=== PATIENT | male | born 1950 | race Caucasian/White ===

== ENCOUNTER → 2016-07-30 08:07 | Outpatient (CLI) | payer MEDICARE ==
[2016-04-09 13:13] VITALS: BMI 33.9
[~2016-07-30 08:07] MED LIST: BAYER CHEWABLE81 MG PO; CARDURA1 MG PO; CELEXA40 MG PO; CIPRO500 MG PO; FLAGYL500 MG PO; HYDROCODONE-APA1 TAB PO; OMEPRAZOLE40 MG PO; REMERON15 MG PO; TOPROL XL50 MG PO
== END | disposition home or self-care (01) ==
LOC: D.RAD 08:07
DX: R12 Heartburn (principal); R13.10 Dysphagia, unspecified

== ENCOUNTER → 2016-08-16 12:29 | Outpatient (CLI) | payer MEDICARE ==
[2016-04-09 13:13] VITALS: BMI 33.9
== END | disposition home or self-care (01) ==
LOC: D.CT 12:29
DX: R91.1 Solitary pulmonary nodule (principal)

== ENCOUNTER → 2016-09-26 18:52 | Outpatient (CLI) | payer MEDICARE ==
[2016-04-09 13:13] VITALS: BMI 33.9
== END | disposition home or self-care (01) ==
LOC: D.LABREF 18:52
DX: M16.11 Unilateral primary osteoarthritis, right hip (principal); Z11.8 Encounter for screening for other infectious and parasitic diseases

== ENCOUNTER → 2016-10-02 18:41 | Outpatient (CLI) | payer MEDICARE ==
[2016-04-09 13:13] VITALS: BMI 33.9
== END | disposition home or self-care (01) ==
LOC: D.LABREF 18:41
DX: L72.0 Epidermal cyst (principal)

== ENCOUNTER 2016-12-04 09:30 | Inpatient (IN) | payer MEDICARE ==
[~2016-12-04] VITALS: Ht 182.9 cm; Wt 106.1 kg
[2016-12-05] MEDS ORDERED: COZAAR50 MG PO (08:09)
[2016-12-05] MEDS ORDERED: GABAPENTIN100 MG PO (08:10)
[2016-12-06 10:54] LABS: BASOPHILS 0.2 % (0-2); EOSINOPHILS 2.6 % (0-7); HEMATOCRIT 40.4 % (42.0-54.0); HEMOGLOBIN 13.9 g/dL (13.5-17.5); IMMATURE GRANULOCYTES 0.4 % (0-5); LYMPHOCYTES 22.2 % (15-50); MCH 33.4 pg (26.0-34.0); MCHC 34.4 g/dL (31.0-37.0); MCV 97.1 fL (80.0-100.0); MEAN PLATELET VOLUME 9.6 fL (7.4-10.4); MONOCYTES 9.6 % (2-11); PLATELET COUNT 283 10x3/uL (130-400); RBC 4.16 10x6/uL (4.20-6.10); RDW 13.2 % (11.5-14.5); WBC 10.8 10x3/uL (4.8-10.8)
[2016-12-06 11:01] LABS: APPEARANCE CLEAR (CLEAR); BILIRUBIN NEGATIVE (NEGATIVE); COLOR STRAW (YELLOW); GLUCOSE NEGATIVE (NEGATIVE); KETONE NEGATIVE (NEGATIVE); LEUKOCYTE ESTERASE NEGATIVE (NEGATIVE); NITRITE NEGATIVE (NEGATIVE); PROTEIN NEGATIVE (NEGATIVE); SPECIFIC GRAVITY 1.015 (1.005-1.020); UROBILINOGEN NORMAL (NORMAL)
[2016-12-06 11:11] LABS: ANION GAP 12.8 mmol/L (8-16); CALCIUM 8.6 mg/dL (8.5-10.1); CARBON DIOXIDE 25.8 mmol/L (21.0-32.0); CREATININE - SERUM 1.8 mg/dL (0.6-1.3); POTASSIUM - SERUM 4.6 mmol/L (3.5-5.1)
[2016-12-06 11:23] LABS: APTT 28.5 SECONDS (22.8-39.4); INR 0.87 (0.85-1.17); PROTIME 11.6 SECONDS (11.6-15.0)
[2016-12-10] VITALS (13 sets, daily range): BP systolic 99–132; BP diastolic 53–89; BMI 31.9; BMI 31.8
--- NOTE | 2016-12-10 06:26 | NUR ---
0626 PT STATES NO CHANGES IN HEALTH CARE HISTORY SINCE ASSESSED ON 12/06/16. LAST BM 12/09/16. STATES NPO SINCE MIDNIGHT EXCPET AM MEDS WITH SIP OF H2O. Jose PRESCOTT R.N.
--- NOTE | 2016-12-10 08:39 | NUR ---
RIGHT HIP,LEG AND FOOT WASHED WITH HIBICLENS AND ALCOHOL PRIOR TO CHLORPREP PER D.N
--- NOTE | 2016-12-10 10:30 | NUR ---
RECIEVED PT FROM RECOVERY AT THIS TIME. REPORT GIVEN BY TIAGO LOMAX. PT CAME TO THE FLOOR ON 6L OXYMIZER WITH AN O2 SAT OF 90%, PTS PULSE RATE IS 45BPM AT THIS TIME. POST-OP VITALS STARTED AND CALL PLACED TO DR. RUIZ. WILL CONTINUE TO MONITOR.
--- NOTE | 2016-12-10 11:30 | OP ---
PATIENT NAME: KURTIS CRONIN MEDICAL RECORD: [id number] :50 LOCATION:[id number] ADMISSION DATE:12/10/16 SURGEON: KIRK RUIZ MD DATE OF OPERATION: 12/10/2016 Orthopedic Surgery Operative Note PREOPERATIVE DIAGNOSIS: Degenerative arthritis, right hip. POSTOPERATIVE DIAGNOSIS: Degenerative arthritis, right hip. PROCEDURE: Right total hip arthroplasty. ANESTHESIA: General. INTRAOPERATIVE COMPLICATIONS: None. SUMMARY OF PATHOLOGIC FINDINGS: The patient was indeed found to have severe degenerative arthritis of the right hip. IMPLANTS USED: Harrison Accolade II total hip arthroplasty system with a size 56 hemispherical cluster hole shell size 6 Accolade II stem, a standard V40 femoral head and a zero degree polyethylene insert liner 36 mm alpha code E. OPERATIVE SUMMARY IN DETAIL: After obtaining the appropriate preoperative orthopedic surgery consent as well as anesthetic consultation, evaluation and clearance, the patient was brought to the operating room and placed on the operating table in supine position. After general laryngeal mask was administered, the patient was placed in a left lateral decubitus position. All pressure points were well padded to include down leg peroneal pad as well as axillary roll. The patient was held firmly to the operating table using the vacuum pack suction system. Right lower extremity and hip were then prepped and draped in a routine sterile fashion. Curvilinear incision made over the greater trochanter, taken down the level of the IT band, which was split in line with fibers of the IT band to reveal the gluteus medius and minimus, which were reflected anteriorly. The hip capsule was split in a T-type fashion and saved for later reapproximation. Hip was dislocated and femoral neck cut was made using the femoral neck cutting guide for the Accolade system. The acetabulum was then exposed. Circumferential labrectomy was followed by serial and sequential reaming to a size 55 for a size 56 Tritanium cup. This was put into place with excellent capture followed by placement of the liner, which also snapped into place nicely. At this point, attention was turned to the proximal femur. Several sequential reaming and broaching were done for a size 6 Accolade II stem, which was put into place. Trials were undertaken with variable heads. Standard was the most appropriate for establishment of leg lengths. Having completed this, the head was put into place, tamped on the [place] taper and reduced, taken through range of motion and found to be stable in all planes. Wound was copiously irrigated at this in multiple points. The hip capsule was closed with #2 Ethibond followed by #5 Ethibond reapproximation of the gluteus medius minimus back to the greater trochanter in a transosseous fashion. IT band was closed with #2 Ethibond followed by #1 Vicryl, 2-0 Vicryl and skin fco. Sterile dressings were applied. The patient was awakened, taken to recovery room in stable condition. All final needle and sponge counts were correct. OPERATIVE REPORT [id number] KURTIS CRONIN TRANSINT:[id number] Voice Confirmation ID: [id number] DOCUMENT ID: [id number] SRAA TIWARI, KIRK GILL at 1130 CC: [id number] DICTATION DATE: 12/10/16919 TRANSMISSION REPAIRER: 12/10/16 1048 ADM IN [facility] [address] [place] [address]
[2016-12-10 11:40] LABS: HEMATOCRIT 37.3 % (42.0-54.0); HEMOGLOBIN 12.8 g/dL (13.5-17.5); MCH 33.6 pg (26.0-34.0); MCHC 34.3 g/dL (31.0-37.0); MCV 97.9 fL (80.0-100.0); MEAN PLATELET VOLUME 9.1 fL (7.4-10.4); RBC 3.81 10x6/uL (4.20-6.10); RDW 13.4 % (11.5-14.5); WBC 17.3 10x3/uL (4.8-10.8)
[2016-12-10 12:03] LABS: ANION GAP 13.2 mmol/L (8-16); CALCIUM 8.5 mg/dL (8.5-10.1); CARBON DIOXIDE 25.8 mmol/L (21.0-32.0); CREATININE - SERUM 2.2 mg/dL (0.6-1.3)
--- NOTE | 2016-12-10 12:13 | NUR ---
1200 PT RECIEVED FROM THE MS FLOOR POST OP RIGHT HIP.. DRESSING CDI.. PT REPORT STATED THAT PT HAVING RESPIRATORY DIFFICULTY AND HR ONFLOOR 48.. ABGs DONE PRIOR TO THE TRANSFER.. ON ARRIVAL PT IN SR WITH FREQUENT PVCs.. O2 SAT 98% BP 117/79.. ON ARRIVAL TO THE ICU PT IS PLACED ON BIPAP O2 AT 40% 18/[address] WHITLEY IN THE ICU AND IS CONSULTED AND SEEING PT AT THIS TIME.. Isael NOVA IN TO SEE PT FOR DR RUIZ.. SHE SPOKW WITH DR WHITLEY..
--- NOTE | 2016-12-10 12:30 | NUR ---
FAMILY TO BEDSIDE, CAREGIVER WHO HAS PASSWORD GIVEN STATUS UPDATE, VOICES NBO NEEDS A THIS TIME
--- NOTE | 2016-12-10 14:50 | NUR ---
CEFTAZOLIN 1 GM IVPB AND 1/2 NS IVF INTITIATED PER MAR ORDER, INFUSING THROUGH LEFT WRIST PIV
--- NOTE | 2016-12-10 14:53 | NUR ---
CONTINUES ON BIPAP, 35% FIO2, SET AT 18/8, RESP 15 AT THIS TIME, DROWSEY, AROUSES TO VERABL STIMULI, FOLLOWS COMMANDS, DENIES PAIN, NO OTHER CHANGES FROM PREVIOUS ASSESSMENT
--- NOTE | 2016-12-10 17:30 | NUR ---
ORAL CARE AND MOUTH MOISTURIZING COMPLETED
--- NOTE | 2016-12-10 19:00 | NUR ---
REPORT RECEIVED AND ASSESSMENT COMPLETED SOME BLEEDING NOTED ON SURGICAL SITE. DRESSING REINFORCED AND MARKED TO ASSESS FURTHER BLEED. NO SIGN OF HEMATOMA
--- NOTE | 2016-12-10 21:00 | NUR ---
2100 MEDS GIVEN. NO OTHER CHANGES AT THIS TIME. VSS.
--- NOTE | 2016-12-10 23:00 | NUR ---
REASSESSMENT COMPLETED. SEE FLOWSHEET FOR FULL DETAILS. VSS. WILL CONTINUE TO MONITOR
[2016-12-11] VITALS (18 sets, daily range): BP systolic 105–174; BP diastolic 60–95; Ht 182.9 cm; Wt 106.1 kg
--- NOTE | 2016-12-11 01:00 | NUR ---
RESITE IV X 2 DUE TO INFILTRATION SINCE LAST NOTE. NOW IN LEFT FOREARM. NO OTHER CHANGES AT THIS TIME. VSS. WILL MONITOR
--- NOTE | 2016-12-11 03:00 | NUR ---
REASSESSMENT COMEPLETED. SEE FLOWSHEET FOR FULL DETAILS. NO OTHER CHANGES IN STATUS AT THIS TIME. WILL CONTINUE TO MONITOR
--- NOTE | 2016-12-11 05:00 | NUR ---
I&O COMPLETE AT THIS TIME. NO OTHER CHANGES AT THIS TIME. VSS. WILL CONTINUE TO MONITOR
--- NOTE | 2016-12-11 05:00 | NUR ---
PT HAS BEEN THROWING OCCASIONAL PVCS. NO OTHER CHANGES AT THIS TIME. VSS. WILL MONITOR
[2016-12-11 05:08] LABS: BASOPHILS 0 % (0-2); EOSINOPHILS 0 % (0-7); HEMATOCRIT 35.4 % (42.0-54.0); HEMOGLOBIN 11.9 g/dL (13.5-17.5); IMMATURE GRANULOCYTES 0.4 % (0-5); LYMPHOCYTES 5.5 % (15-50); MCH 32.9 pg (26.0-34.0); MCHC 33.6 g/dL (31.0-37.0); MCV 97.8 fL (80.0-100.0); MEAN PLATELET VOLUME 9.3 fL (7.4-10.4); MONOCYTES 3.6 % (2-11); NEUTROPHILS 90.5 % (40-80); PLATELET COUNT 236 10x3/uL (130-400); RBC 3.62 10x6/uL (4.20-6.10); RDW 13.1 % (11.5-14.5); WBC 18.4 10x3/uL (4.8-10.8)
[2016-12-11 05:32] LABS: ANION GAP 12.9 mmol/L (8-16); CALCIUM 8.1 mg/dL (8.5-10.1); CARBON DIOXIDE 24.8 mmol/L (21.0-32.0); CREATININE - SERUM 2.3 mg/dL (0.6-1.3); MAGNESIUM - SERUM 1.7 mg/dL (1.8-2.4); PHOSPHOROUS 3.1 mg/dL (2.5-4.9); POTASSIUM - SERUM 4.7 mmol/L (3.5-5.1)
--- NOTE | 2016-12-11 07:00 | NUR ---
REC'D REPORT AN D RESUMED CARE, AWAKE, BIPAP IN USE WITH 30% FIO2, O2 SAT 96%, LT FA PIV WITH 1/2 NS INFUSING AT 100 CC/HR, AND DILAUDID WIRING INSPECTOR IN USEDENIES PAIN, RIGHT HIP WITH SOLIED DRESSING, ICE PACK IN USE, ASSESSMENT COMPLETE PER FLOWSHEET, CALL LIGHT AND WIRING INSPECTOR BUTTON IN REACH, NO NEEDS AT THIS TIME
--- NOTE | 2016-12-11 08:30 | NUR ---
BATH AND LINEN CHANGE COMPLETED, DRESSING REINFORCED TO RIGHT HIP WITH ABD PADS, ICE IN PACK USE, TOLERATED WITHOUT DIFFICULTY, NO OTHER NEEDS AT THIS TIME
--- NOTE | 2016-12-11 11:00 | NUR ---
RESTING WITH NO SIGNS OF DISTRESS, VSS, 600 CC'S URINE TO URINAL, ASSESSMENT COMPLETE PER FLOW SHEET, NO NEEDS AT THIS TIME
--- NOTE | 2016-12-11 11:45 | NUR ---
CHANGED TO 3L OXYMIZER BY RT, SAT 96%, NO SIGN OF DISTRESS, ORAL MEDS AND LUNCH TRAY TO BEDSIDE, INDEPENDENT WITH SET UP AND EATING
--- NOTE | 2016-12-11 12:00 | NUR ---
FAMILY AT BEDSIDE, STATUS UPDATED VOICES NO NEEDS AT THIS TIME
--- NOTE | 2016-12-11 18:06 | NUR ---
PT AOX4 RESP EVEN AND NONLABORED PT DENIES NEEDS AT THIS TIME IV LEFT FOREARM PATENT AND INTACT. SRX2. BED AT LOWEST SETTING CALL LIGHT WITHIN REACH PT TRANSFERRED VIA SLIDE BOARD TO BED IN ROOM WILL CONTINUE TO MONITOR
--- NOTE | 2016-12-11 21:45 | NUR ---
PATIENT RESTING IN BED AND DENIES NEEDS AT THIS TIME. ADMINISTERED MEDS PER ORDERS. ASSESSMENT COMPLETE. BED IN LOWEST POSITION AND CALL LIGHT WITHIN REACH.
[2016-12-12] VITALS (8 sets, daily range): BP systolic 134–164; BP diastolic 67–88
[2016-12-12 06:42] LABS: HEMATOCRIT 35.4 % (42.0-54.0); MCHC 33.9 g/dL (31.0-37.0); MCV 97.3 fL (80.0-100.0); MEAN PLATELET VOLUME 9.1 fL (7.4-10.4); PLATELET COUNT 259 10x3/uL (130-400); RBC 3.64 10x6/uL (4.20-6.10); RDW 13.5 % (11.5-14.5); WBC 23.2 10x3/uL (4.8-10.8)
[2016-12-12 07:09] LABS: ANION GAP 17.2 mmol/L (8-16); CALCIUM 8.8 mg/dL (8.5-10.1); CARBON DIOXIDE 21.2 mmol/L (21.0-32.0); CREATININE - SERUM 1.9 mg/dL (0.6-1.3); POTASSIUM - SERUM 4.4 mmol/L (3.5-5.1)
--- NOTE | 2016-12-12 07:25 | NUR ---
REPORT RECEIVED FROM BOLOGNA LACER NURSE. CALL LIGHT IN REACH.
[2016-12-12 07:44] LABS: LYMPHOCYTES 11 % (15-50); MONOCYTES 6 % (2-11); NEUTROPHILS 78 % (40-80); PLATELET ESTIMATE NORMAL
--- NOTE | 2016-12-12 08:02 | NUR ---
ASSESSMENT COMPLETED. PERCOCET PO WITH AM MEDS ADMINISTERED. REFUSES SCDs AT THIS TIME. GRANDSON AT BEDSIDE. CALL LIGHT IN REACH. BED ALARM ON. WILL CONTINUE WITH PLAN OF CARE.
--- NOTE | 2016-12-12 08:56 | NUR ---
Patient Name: KURTIS CRONIN Admission Status: Urgent Accout number: [id number] Admission Date: 12-10-2016 : 1950 Admission Diagnosis:UNILATERAL PRIMARY OSTEOARTHRITIS, RIGHT HIP Attending: MARGUERITE Current LOS: 2 Anticipated DC Date: 12-14-2016 Planned Disposition: Home with Home Health Primary Insurance: MEDICARE A & B Discharge Planning Comments: CM MET WITH PATIENT REGARDING D/C NEEDS AND PLANS. PATIENTS CHILDREN LIVE WITH HIM AND HE HAS A NEIGHBOR (MIRNA) THAT WILL DRIVE HIM HOME AND ASSIST IF NEEDED. PATIENT HAS NO STEPS OR STAIRS AT HIS HOME. PATIENT STATED HE IS INDEPENDENT WITH HIS CARE AND HAS NO DME AT HOME. PATIENTS PCP IS DR. MANZANO AND USES [facility] IN [place]. PATIENT IS CURRENT WITH [facility] [employer]. CM WILL CONTINUE TO FOLLOW PATIENT WITH D/C NEEDS AND PLANS. PCP DR. MANZANO [facility] IN [place]- [phone] [place] (NEIGHBOR) [phone] Naphthalene Operator Helper: Urszula Gomez Is the patient Alert and Oriented? Yes 0 * How many steps to enter\exit or inside your home? 0 0 * PCP DR. MANZANO 0 * Pharmacy [facility] IN [place] 0 * Preadmission Environment Home with Family 0 * ADLs Independent 0 * Equipment None 0 * List name and contact numbers for known caregivers / representatives who currently or will assist patient after discharge: MIRNA (NEIGHBOR) [phone] 0 * Community resources currently utilized None 0 * Additional services required to return to the preadmission environment? Yes 0 * Can the patient safely return to the preadmission environment? Yes 0 * Has this patient been hospitalized within the prior 30 days at any hospital? No 0 Grand Total: 0
--- NOTE | 2016-12-12 10:40 | NUR ---
DRSG TO RIGHT HIP SATURATED AND CHANGED.
--- NOTE | 2016-12-12 12:05 | NUR ---
NO NEEDS VOICED AT THIS TIME. GRANDSON AT BEDSIDE. PATIENT NOTIFIED OF NEED FOR URINE SAMPLE FOR URINALYSIS.
--- NOTE | 2016-12-12 14:42 | NUR ---
GABAPENTIN AND PERCOCET PO. STATES PAIN OF 5. IV FLUSHED WITH NS. REFUSES ICE PACK AT THIS TIME.
--- NOTE | 2016-12-12 16:40 | NUR ---
RESTING WITH EYES CLOSED. RESP EVEN AND UNLABORED. CALL LIGHT IN REACH.
--- NOTE | 2016-12-12 17:38 | NUR ---
CLEAN CATCH URINE SAMPLE COLLECTED AND SENT TO LAB.
[2016-12-12 18:29] LABS: APPEARANCE CLEAR (CLEAR); BILIRUBIN NEGATIVE (NEGATIVE); COLOR YELLOW (YELLOW); GLUCOSE NEGATIVE (NEGATIVE); KETONE NEGATIVE (NEGATIVE); LEUKOCYTE ESTERASE NEGATIVE (NEGATIVE); NITRITE NEGATIVE (NEGATIVE); PROTEIN NEGATIVE (NEGATIVE); UROBILINOGEN NORMAL (NORMAL)
--- NOTE | 2016-12-12 18:51 | NUR ---
NO CHANGES IN INITIAL ASSESSMENT. STILL REFUSES SCDs AND ICE. CALL LIGHT IN REACH. WILL CONTINUE WITH PLAN OF CARE.
--- NOTE | 2016-12-12 21:32 | NUR ---
PATIENT RESTING IN BED WITH GUEST AT BEDSIDE AND NO VISIBLE SIGNS OF DISTRESS. ADMINISTERED MEDS PER ORDERS. BED IN LOWEST POSITION AND CALL LIGHT WITHIN REACH. ENCOURAGED THE PATIENT TO CALL IF HE HAS NEEDS.
[2016-12-13 04:39] VITALS: BP 116/54
[2016-12-13 06:56] LABS: BASOPHILS 0 % (0-2); EOSINOPHILS 0 % (0-7); HEMATOCRIT 35.2 % (42.0-54.0); HEMOGLOBIN 11.8 g/dL (13.5-17.5); IMMATURE GRANULOCYTES 0.9 % (0-5); LYMPHOCYTES 6.7 % (15-50); MCH 32.9 pg (26.0-34.0); MCHC 33.5 g/dL (31.0-37.0); MCV 98.1 fL (80.0-100.0); MEAN PLATELET VOLUME 9.3 fL (7.4-10.4); MONOCYTES 6.2 % (2-11); NEUTROPHILS 86.2 % (40-80); PLATELET COUNT 259 10x3/uL (130-400); RBC 3.59 10x6/uL (4.20-6.10); RDW 13.7 % (11.5-14.5); WBC 20.3 10x3/uL (4.8-10.8)
[2016-12-13 07:12] LABS: ALBUMIN 2.8 g/dL (3.4-5.0); ANION GAP 15.4 mmol/L (8-16); BILIRUBIN - TOTAL 0.27 mg/dL (0.2-1.3); CALCIUM 8.3 mg/dL (8.5-10.1); CARBON DIOXIDE 23.7 mmol/L (21.0-32.0); CREATININE - SERUM 1.7 mg/dL (0.6-1.3); POTASSIUM - SERUM 4.1 mmol/L (3.5-5.1); PROTEIN - SERUM 6.6 g/dL (6.4-8.2)
--- NOTE | 2016-12-13 07:15 | NUR ---
REPORT RECEIVED FROM PIPE LINE MAINTENANCE SUPERVISOR NURSE. CALL LIGHT IN REACH.
[2016-12-13 07:58] VITALS: BP 164/91
[2016-12-13] MEDS ORDERED: ELIQUIS2.5 MG PO (08:05)
--- NOTE | 2016-12-13 09:17 | NUR ---
ASSESSMENT COMPLETED. PERCOCET PO WITH AM MEDS ADMINISTERED. IV DC'D WITH TIP INTACT. GRANDSON IN ROOM. CALL LIGHT IN REACH. WILL CONTINUE WITH PLAN OF CARE.
--- NOTE | 2016-12-13 10:40 | NUR ---
RX FOR ELIQUIS GIVEN TO PATIENT. DC INSTRUCTIONS EXPLAINED TO PATIENT. VERBALIZED UNDERSTANDING.
--- NOTE | 2016-12-13 10:42 | NUR ---
CM REASSESSEMENT NOTE: PATIENT IS DISCHARGING HOME TODAY-FRIEND IS DRIVING HIM HOME. KAILEE PROVIDING PATIENTS NEBULIZER AND WALKER.
--- NOTE | 2016-12-13 12:10 | NUR ---
STILL WAITING ON NEB MACHINE AND WALKER FOR HOME USE BEFORE [facility]INT CAN GET DC'D HOME.
--- NOTE | 2016-12-13 12:44 | NUR ---
DC'D TO VEHICLE VIA WC WITH FAMILY.
== END 2016-12-13 12:44 | disposition home or self-care (01) | DRG 469 ==
LOC: D.SDCHOLD 12-06 09:30 → D.ICU 12-10 05:00 → D.SDCHOLD 12-10 05:00 → D.MS 12-10 05:00 → D.SDCHOLD 12-10 07:30 → D.MS 12-10 09:19 → D.SDCHOLD 12-10 09:30 → D.ICU 12-10 11:56 → D.MS 12-11 17:51
PROVIDERS: Internal Medicine; Internal Medicine Pulmonary Disease; ADMIT Orthopaedic Surgery
PROC: 5A09457 Assistance with Respiratory Ventilation, 24-96 Consecutive Hours, Continuous Positive Airway Pressure (ICD-10-PCS; 2016-12-10)
PROC: 0SR90JZ Replacement of Right Hip Joint with Synthetic Substitute, Open Approach (ICD-10-PCS; principal; 2016-12-10 07:30)
DX: M16.11 Unilateral primary osteoarthritis, right hip (principal); J96.22 Acute and chronic respiratory failure with hypercapnia; J96.21 Acute and chronic respiratory failure with hypoxia; N17.9 Acute kidney failure, unspecified; G47.33 Obstructive sleep apnea (adult) (pediatric); D64.9 Anemia, unspecified; I12.9 Hypertensive chronic kidney disease with stage 1 through stage 4 chronic kidney disease, or unspecified chronic kidney disease; N18.3 Chronic kidney disease, stage 3 (moderate); R00.1 Bradycardia, unspecified; Z91.19 Patient's noncompliance with other medical treatment and regimen; J44.9 Chronic obstructive pulmonary disease, unspecified; K21.9 Gastro-esophageal reflux disease without esophagitis; G62.9 Polyneuropathy, unspecified

== ENCOUNTER → 2017-03-04 10:39 | Outpatient (CLI) | payer MEDICARE ==
[~2017-03-04] VITALS: Ht 182.9 cm; Wt 104.5 kg
--- NOTE | ~2017-03-04 | HEMODYNAMI ---
PATIENT:KURTIS CRONIN MEDICAL RECORD: [id number] : 50 LOCATION:[facility] ADMISSION DATE: 03/04/17 Generatedon:03/04/201713:21 Patient name: KURTIS CRONIN Patient #: [id number] : 1950 Date of study: 03/04/2017 Page: Of Hemodynamic Procedure Report Patient Data Patient Demographics Procedure consent was obtained First Name: KURTIS Gender: Male Last Name: ROSEANNE : 1950 [facility] Initial: ERMIAS Age: 66 year(s) Patient #: [id number] Race: SSN: [id number] Additional ID: [id number] Contact details Address: [address] [place] [address] State: [place] City: [place] Zip code: [address] Past Medical History Allergies: No known allergies Admission Admission Data Admission Date: 03/04/2017 Admission Time: 10:39 Arrival Date: 03/04/2017 Arrival Time: 13:00 Admit Source: Other Insurance Payor: Medicare Height (in.): 72 BSA: 2.27 (m2) Height (cm.): 182.88 BMI: 31.6 (kg/m2) Weight (lbs.): 233 Weight (kg.): 105.69 Lab Results Lab Result Date: 03/04/2017 Lab Result Time: 0:00 Biochemistry Name Units Result Min Max BUN mg/dl 20 --(----)*- 7 18 Creatinine mg/dl 2 --(----)-* 0.6 1.3 CBC Name Units Result Min Max Hemoglobin g/dl 13.5 --(*---)-- 13.5 17.5 Procedure Procedure Types Cath Procedure Diagnostic Procedure [facility] w/Coronaries Miscellaneous Procedures Procedure Description Procedure Date Procedure Date: 03/04/2017 Procedure Start Time: 13:07 Procedure End Time: 13:20 Procedure Staff Name Function Erich Hernandez MD Performing Physician Letty Helton RT Scrub Vivi Montes RN Nurse Emilee Graham RT Monitor Procedure Data Cath Procedure Fluoroscopy Diagnostic fluoroscopy Total fluoroscopy Time: 5 time: 5 min min Diagnostic fluoroscopy Total fluoroscopy dose: 844 dose: 844 mGy mGy Contrast Material Contrast Material Type Amount (ml) Isovue 300 82 Entry Location Entry Primary Successful Side Size Upsize Upsize Entry Closure Avalos ccessful Closure Location (Fr) 1 (Fr) 2 (Fr) Remarks Device Remarks Radial Right 6 Fr Mechanical TR band artery Short Compression Estimated blood loss: 12 ml Diagnostic catheters Device Type Used For End Catheter Placement Terumo 5Fr Larry 110cm LV Angiography catheter Diagnostic Terumo 5Fr Procedure Belton 110cm catheter Procedure Complications No complications Procedure Medications Medication Administration Route Dosage Oxygen NC 2 l/min Heparin Flush Bag added to field 2 bags (1000units/500ml NS) Lidocaine 2% added to field 20 Radial Cocktail added to field 1 syringe (Verapomil 2mg/Nitro 400mcg/Heparin 1500units) Fentanyl I.V. 25 mcg Versed I.V. 1 mg Fentanyl I.V. 50 mcg Versed I.V. 1 mg Fentanyl I.V. 25 mcg Versed I.V. 0.5 mg Radial Cocktail I.A. 1 syringe (Verapomil 2mg/Nitro 400mcg/Heparin 1500units) Hemodynamics Rest BSA: 2.27 (m2) HGB: 13.5 (g/dl) O2 Consumption: Estimated: 243.07 (ml/min) O2 Co nsumption indexed: Estimated:107.08 (ml/min/m) Heart Rate: 45 (bpm) Pressure Samples Time Site Value (mmHg) Purpose Heart Use Rate(bpm) 13:09 LV 115/18,22 Snapshot 66 Gradients Valve Time Site Site Mean SEP/DFP Peak To Heart Use 1 2 (mmHg) (sec/min) Peak Rate (mmHg) (bpm) Aortic 13:10 LV AO 66 Snapshots Pre Cath Intra NCS Post Cath Vital Signs Time Heart Resp SPO2 NIBP (mmHg) Rhythm Pain Sedation Rate (ipm) (%) Status Level (bpm) 12:58:58 45 16 100 133/74(126) NSR 0 (11) 10(A) , No pain 13:03:10 49 17 100 137/83(123) NSR 0 (11) 9(A) , No pain 13:07:19 51 16 99 129/78(114) NSR 0 (11) 9(A) , No pain 13:11:36 65 18 95 108/61(77) NSR 0 (11) 9(A) , No pain 13:15:43 58 17 95 113/74(97) NSR 0 (11) 9(A) , No pain 13:19:55 83 13 96 125/68(96) NSR 0 (11) 9(A) , No pain Medications Time Medication Route Dose Verified Delivered Reason Notes Effectiveness by by 12:57:17 Oxygen NC 2 l/min Ivvi Vivi used for Montes Montes electroencephalographic technologist RN 12:57:23 Heparin Flush added 2 bags Vivi Vivi used for Bag to Montes Montes procedure (1000units/500ml field RN RN NS) 12:57:36 Lidocaine 2% added 20ml Vivi Vivi to vial Montes Montes RN RN 12:57:47 Radial Cocktail added 1 Vivi Vivi used for (Verapomil to syringe Montes Montes procedure 2mg/Nitro field RN RN 400mcg/Heparin 1500units) 13:01:03 Fentanyl I.V. 25 mcg Vivi Vivi for sedation Montesab Montes RN RN 13:01:08 Versed I.V. 1 mg Vivi Vivi for sedation Montesab Montes RN RN 13:05:41 Fentanyl I.V. 50 mcg Vivi Vivi for sedation Montesab Montes RN RN 13:05:44 Versed I.V. 1 mg Vivi Vivi for sedation Montesab Montes RN RN 13:06:50 Fentanyl I.V. 25 mcg Vivi Vivi for sedation Montesab Montes RN RN 13:06:53 Versed I.V. 0.5 mg Vivi Vivi for sedation Montesab Montes RN RN 13:08:16 Radial Cocktail I.A. 1 Vivi Erich for (Verapomil syringe Montes Mary vasodilation 2mg/Nitro RN 400mcg/Heparin 1500units) Procedure Log Time Note 12:33:11 Informed consent obtained and on chart 12:33:36 Diagnostic Cath Status : Elective 12:34:06 Letty Helton RT(R) sent for patient. Start room use. 12:34:07 Time tracking: Regular hours 12:34:12 Plan of Care:Hemodynamics will remain stable., Cardiac rhythm will remain stable., Comfort level will be maintained., Respiratory function will remain adequate., Patient/ family verbilizes understanding of procedure., Procedure tolerated without complication., Recovers from procedure without complications.. 12:36:28 Admit Source: Other 12:36:33 Arrival Date: 03/04/2017 1:00:00 PM 12:37:12 Insurance Payor : Medicare 12:37:18 Patient Height : 182.88 inches 12:37:24 Patient Weight : 105.69 lbs 12:44:57 Lab Result : BUN 20 mg/dl 12:44:57 Lab Result : Creatinine 2 mg/dl 12:44:57 Lab Result : Hemoglobin 13.5 g/dl 12:45:09 Patient received from Pre/Post Procedure Room to [facility] 2 Alert and oriented. Tansferred to table in Supine position. 12:45:10 Warm blankets applied, and selina hugger turned on for patient comfort. 12:45:11 Correct patient and procedure confirmed by team. 12:45:11 ECG and BP/O2 sat monitors applied to patient. 12:57:17 Oxygen 2 l/min NC was administered by Vivi Montes RN; used for procedure; 12:57:23 Heparin Flush Bag (1000units/500ml NS) 2 bags added to field was administered by Vivi Montes RN; used for procedure; 12:57:36 Lidocaine 2% 20ml vial added to field was administered by Vivi Montes RN; ; 12:57:47 Radial Cocktail (Verapomil 2mg/Nitro 400mcg/Heparin 1500units) 1 syringe added to field was administered by Vivi Montes RN; used for procedure; 12:57:51 Vital chart was started 12:58:14 Baseline sample Acquired. 12:58:19 Rhythm: sinus rhythm 12:58:20 Full Disclosure recording started 12:58:32 H&P Date Dictated: 03/01/2017 Within 30 days and on chart., H&P Addendum completed by physician on day of procedure. (MUST COMPLETE FOR ALL OUTPATIENTS). 12:58:34 Pre-procedure instructions explained to patient. 12:58:36 Family in waiting room. 12:58:37 Patient NPO since Midnight. 12:58:45 Is the patient allergic to Iodine/contrast media? No. 12:58:48 Is patient on blood thinner?No 12:58:56 Patient diabetic? No. 12:59:01 Snore? Yes 12:59:03 Sleep apnea? No 12:59:08 Dentures? No ? 12:59:17 IV patent on arrival in left hand with 0.9% NaCl at [facility]. 12:59:23 Lab results completed and on chart. 12:59:26 Alarms reviewed by R. N. 12:59:26 Sharps counted by scrub and verified by R.N. 12:59:27 Physician paged 12:59:28 Physician arrived 12:59:28 --------ALL STOP TIME OUT------ 12:59:29 Final Timeout: patient, procedure, and site verified with staff and physician. All members of the team are in agreement. 12:59:31 Right Radial & Right Groin site verified by team. 12:59:37 Sedation plan: IV Moderate Sedation Versed, Fentanyl 13:00:51 Use device set Radial Dx 13:01:03 Fentanyl 25 mcg I.V. was administered by Vivi Montes RN; for sedation; 13:01:08 Versed 1 mg I.V. was administered by Vivi Montes RN; for sedation; 13:03:51 Acist Syringe opened to sterile field. 13:03:52 Medline Cath Pack opened to sterile field. 13:03:53 Bag Decanter opened to sterile field. 13:03:53 Terumo 6Fr Slender Glidesheath opened to sterile field. 13:03:54 St Tiago 260cm J .035 wire opened to sterile field. 13:03:54 Acist Hand Control opened to sterile field. 13:03:55 Acist Manifold opened to sterile field. 13:03:55 Tegaderm 4 x 4 opened to sterile field. 13:03:56 MBrace Wrist Support opened to sterile field. 13:04:09 Zero performed for pressure channel P1 13:05:41 Fentanyl 50 mcg I.V. was administered by Vivi Montes RN; for sedation; 13:05:44 Versed 1 mg I.V. was administered by Vivi Montes RN; for sedation; 13:06:30 Procedure started. 13:06:50 Fentanyl 25 mcg I.V. was administered by Vivi Montes RN; for sedation; 13:06:53 Versed 0.5 mg I.V. was administered by Vivi Montes RN; for sedation; 13:07:13 Local anesthetic to right radial artery with Lidocaine 2% by Erich Hernandez MD.INITIAL ACCESS ONLY 13:07:42 A 6 Fr Short sheath was inserted into the Right Radial artery 13:08:16 Radial Cocktail (Verapomil 2mg/Nitro 400mcg/Heparin 1500units) 1 syringe I.A. was administered by Erich Hernandez MD; for vasodilation; 13:08:25 A Terumo 5Fr Larry 110cm catheter was advanced over the wire and used for LV Angiography. 13:10:04 EF : 40 % 13:11:15 RCA angiography performed. 13:13:20 Catheter removed. 13:14:06 A Diagnostic Terumo 5Fr Belton 110cm catheter was advanced over the wire and used for Procedure. 13:14:09 LCA angiography performed. 13:17:16 Catheter removed. 13:17:33 Terumo TR Band Standard opened to sterile field. 13:17:54 Sheath removed intact; hemostasis achieved with Mechanical Compression to the Right Radial artery. 13:18:02 Procedure ended.(Physican Out) 13:18:45 Fluoroscopy time 05.00 minutes. 13:18:59 Flurop Dose total: 844 13:18:59 Fluoroscopy dose: 844 mGy 13:19:08 Contrast amount:Isovue 300 82ml. 13:19:11 Sharps counted by scrub and verified by R.N. 13:19:21 TR band inflated with 10cc of air. 13:19:23 Insertion/operative site no bleeding no hematoma. 13:19:28 Post right radial artery:stable 13:19:30 Post Procedure Pulses reassessed and unchanged 13:19:33 Post-procedure physical assessment completed. ASA score P 2 - A patient with mild systemic disease as per Erich Hernandez MD. 13:19:36 Post procedure rhythm: unchanged. 13:19:39 Estimated blood loss: 12 ml 13:19:40 Post procedure instruction explained to patient.Patient verbalizes understanding. 13:19:45 Procedure and supply charges have been captured, reviewed, submitted and are correct. 13:20:02 Procedure Complication : No complications 13:20:04 Vital chart was stopped 13:20:20 See physician's report for complete and final results. 13:20:32 Report given to Pre/Post Procedure Room. 13:20:42 Patient transfered to Pre/Post Procedure Room with Bed. 13:20:45 Procedure ended. 13:20:45 Full Disclosure recording stopped 13:20:51 End room use (Document Last) Device Usage Item Name Manufacture Quantity Catalog Hospital Part Current Minimal Lot# / Number Charge Number Stock Stock Serial# Code Acist Acist 1 03484 216062 659981 095636 20 Syringe Medical Systems Inc Medline Cardinal 1 [id number] 62615 620173 5 Cath Pack Health Bag Microtek 1 2001S 305739 07753 851251 5 Decanter Medical Inc. Terumo 6Fr Terumo 1 [id number] 822580 271173 692484 [address] St Tiago 1 196346 500827 171768 092007 30 260cm J .035 wire Acist Hand Acist 1 73577 314537 317976 036068 5 Control Medical Systems Inc Acist Acist 1 24153 034221 548171 106166 5 Manifold Medical Systems Inc Tegaderm 4 3M 1 1626W 287019 480705 538106 5 x 4 MBrace Advanced 1 140-0250-00 715693 73541 329723 5 Wrist Vascular Support Dynamics Terumo 5Fr Terumo 1 40-5713 654332 318957 142379 5 Larry 110cm catheter Diagnostic Terumo 1 40-8720 838802 063952 699955 5 Terumo 5Fr Belton 110cm catheter Terumo TR Terumo 1 [id number] 976210 817913 092360 40 Band Standard Signature Audit [place] Stage Time Signature Unsigned Intra-Procedure 03/04/2017 Emilee Graham 1:21:31 PM RT(R) Signatures Monitor : Emilee Graham Signature : RT Date : Time : [address] [place] [address]
[~2017-03-04 10:39] MED LIST changes: +COZAAR50 MG PO; +ELIQUIS2.5 MG PO; +GABAPENTIN100 MG PO; +NIZORAL 2 % CRE15 GM TOPICAL; +SYSTANE 0.3-0.4%5 ML EACH EYE
[2017-03-04 11:07] VITALS: BP 141/74; Ht 182.9 cm; Wt 104.5 kg
[2017-03-04 11:13] LABS: BASOPHILS 0.3 % (0-2); EOSINOPHILS 2.4 % (0-7); HEMATOCRIT 39.4 % (42.0-54.0); HEMOGLOBIN 13.5 g/dL (13.5-17.5); IMMATURE GRANULOCYTES 0.3 % (0-5); LYMPHOCYTES 32.3 % (15-50); MCH 32.2 pg (26.0-34.0); MCHC 34.3 g/dL (31.0-37.0); MEAN PLATELET VOLUME 9.3 fL (7.4-10.4); MONOCYTES 8.3 % (2-11); NEUTROPHILS 56.4 % (40-80); PLATELET COUNT 295 10x3/uL (130-400); RBC 4.19 10x6/uL (4.20-6.10); RDW 13.7 % (11.5-14.5); WBC 9.1 10x3/uL (4.8-10.8)
[2017-03-04 11:32] LABS: ANION GAP 14.9 mmol/L (8-16); CARBON DIOXIDE 24.6 mmol/L (21.0-32.0); POTASSIUM - SERUM 4.5 mmol/L (3.5-5.1)
--- NOTE | 2017-03-04 13:39 | NUR ---
RECIEVED TO ROOM VIA STRETCHER FROM DETAILER FURNITURE WITH TR BAND TO R/WRIST CDI INFLATED AT 12 CC. REPORTS OF A CLEAN CATH WITH NO INTERVENTION NEEDED AT THIS TIME. SB RATE 49 WITH CHEST PAIN DENIED
--- NOTE | 2017-03-04 13:45 | NUR ---
RESTING QUIETLY WITH NO DISTRESS NOTED SB RATE 49 BP 142/73. TR BAND TO R/WRIST CDI NO BLEEDING NO HEMATOMA NOTED
--- NOTE | 2017-03-04 14:12 | NUR ---
VSS WITH NO DISTRESS NOTED. TR BAND REMAINS CDI NO BLEEDING NO HEMATOMA NOTED.
--- NOTE | 2017-03-04 14:43 | NUR ---
REPOSITIONED TO SITTING WITH HOB UP 45 DEGREES SANDWICH AND SODA TO BEDSIDE CHEST PAIN IS DENIED WITH VSS TR BAND REMAIN TO R/WRIST CDI NO BLEEDING NO HEMATOMA NOTED
--- NOTE | 2017-03-04 15:00 | NUR ---
1500 2 CC AIR REMOVED FROM TR BAND WITH NO BLEEDING NO HEMATOMA NOTED
--- NOTE | 2017-03-04 15:13 | NUR ---
2 CC AIR REMOVED FROM TR BAND WITH NO BLEEDING NO HEMATOMA NOTED. VSS WITH CHEST PAIN DENIED
--- NOTE | 2017-03-04 15:31 | NUR ---
PIV REMOVED WITH PRESSURE HELD. DRESSING APPLIED PATIENT REMAINS NSR RATE 70 WITH CHEST PAIN DENIED. UP TO GET DRESSED FOR DISCHARGE
--- NOTE | 2017-03-04 15:32 | NUR ---
4 CC AIR REMOVED FROM TR BAND WITH NO BLEEDING NO HEMATOMA NOTED.PIV REMOVED WITH DRESSING APPLIED. PATIENT UP TO GET DRESSED FOR DISCHARGE HOME WITH CHEST PAIN DENIED.
--- NOTE | 2017-03-04 15:53 | NUR ---
TR BAND REMOVED WITH NO BLEEDING NO HEMATOMA NOTED. CHEST PAIN IS DENIED. VERBAL AND WRITTEN DISCHARGE GONE OVER WITH PATIENT AND FRIENDS. LEFT VIA WC TO PARKING FOR TRANSPORT HOME
--- NOTE | 2017-03-06 10:33 | OP ---
PATIENT NAME: KURTIS CRONIN MEDICAL RECORD: [id number] :[birth year] LOCATION:D.CAT ADMISSION DATE: SURGEON: MEIR FAUSTIN MD DATE OF OPERATION: 03/04/2017 PROCEDURES: Left heart catheterization, selective coronary angiography, right radial approach. CATHETERS: Brusett and Mary catheter. The procedure was well tolerated. The patient was returned to perry, sheath removed. TR band was placed. FINDINGS: Left ventriculography in the 30-degree GILLESPIE view shows global hypokinesis. Overall, mild reduced EF 40%-45%. CORONARY ANATOMY: LEFT MAIN: Left main is free of disease. LAD: Free of disease in the diagonal system. CIRCUMFLEX: Free of disease in the marginal system. RIGHT CORONARY ARTERY: Dominant artery, gives rise to the PDA, free of disease. IMPRESSION: Mildly decreased left ventricular function. Normal coronary anatomy. Suspect mild myopathy is multifactorial, renal insufficiency, hypertension, etc. Continued medical management is recommended. TRANSINT:[id number] Voice Confirmation ID: [id number] DOCUMENT ID: [id number] MEIR FAUSTIN MD at 1033 CC: [id number] DICTATION DATE: 03/04/17 1324 MAIL INSERTER: 03/04/17 2113 DEP CLI 03/04/17 [facility] [address] [place] [address]
== END | disposition home or self-care (01) ==
LOC: D.CATH 10:39
PROVIDERS: Internal Medicine Interventional Cardiology
DX: I25.119 Atherosclerotic heart disease of native coronary artery with unspecified angina pectoris (principal); I10 Essential (primary) hypertension; I49.3 Ventricular premature depolarization; R94.30 Abnormal result of cardiovascular function study, unspecified; Z01.812 Encounter for preprocedural laboratory examination

== ENCOUNTER 2017-09-12 08:15 | Outpatient (CLI) | payer MEDICARE ==
[~2017-09-12] VITALS: Ht 182.9 cm; Wt 99.5 kg
[2017-09-12 08:54] VITALS: BP 134/80; Ht 182.9 cm; Wt 99.5 kg
[2017-09-12 09:19] LABS: ANION GAP 16.5 mmol/L (8-16); CALCIUM 9.1 mg/dL (8.5-10.1); CARBON DIOXIDE 24.9 mmol/L (21.0-32.0); CREATININE - SERUM 2.1 mg/dL (0.6-1.3); POTASSIUM - SERUM 4.4 mmol/L (3.5-5.1)
[2017-09-12 09:21] LABS: APTT 26.3 SECONDS (22.8-39.4); INR 0.95 (0.85-1.17); PROTIME 12.3 SECONDS (11.6-15.0)
[2017-09-12 09:50] LABS: BASOPHILS 0.3 % (0-2); EOSINOPHILS 1.5 % (0-7); HEMATOCRIT 38.7 % (42.0-54.0); HEMOGLOBIN 12.8 g/dL (13.5-17.5); IMMATURE GRANULOCYTES 0.4 % (0-5); LYMPHOCYTES 11.2 % (15-50); MCH 31.4 pg (26.0-34.0); MCHC 33.1 g/dL (31.0-37.0); MCV 94.9 fL (80.0-100.0); MEAN PLATELET VOLUME 9.5 fL (7.4-10.4); MONOCYTES 10.8 % (2-11); NEUTROPHILS 75.8 % (40-80); PLATELET COUNT 288 10x3/uL (130-400); RBC 4.08 10x6/uL (4.20-6.10); RDW 13.3 % (11.5-14.5); WBC 14.1 10x3/uL (4.8-10.8)
== END 2017-09-12 13:03 | disposition home or self-care (01) ==
LOC: D.SP 08:15 → D.CT 11:00 → D.SP 11:00
PROVIDERS: Radiology Diagnostic Radiology
DX: R59.0 Localized enlarged lymph nodes (principal); Z01.812 Encounter for preprocedural laboratory examination

== ENCOUNTER → 2018-01-02 14:43 | Outpatient (CLI) | payer MEDICARE ==
[2017-09-12 08:54] VITALS: BMI 29.7
== END | disposition home or self-care (01) ==
LOC: D.MRI 14:43
DX: C80.1 Malignant (primary) neoplasm, unspecified (principal)

== ENCOUNTER 2018-01-08 09:01 | Outpatient (CLI) | payer MEDICARE ==
[~2018-01-08] VITALS: Ht 182.9 cm; Wt 92.7 kg
[2018-01-08 10:21] VITALS: BP 123/68; Ht 182.9 cm; Wt 92.7 kg
== END 2018-01-08 15:07 | disposition home or self-care (01) ==
LOC: D.OPS 09:01 → D.SDCHOLD 11:00 → D.OPS 15:07 → D.SDCHOLD 15:07
DX: Z01.83 Encounter for blood typing (principal)

== ENCOUNTER → 2018-01-16 11:05 | Outpatient (CLI) | payer MEDICARE ==
[2018-01-08 10:21] VITALS: BMI 27.7
== END | disposition home or self-care (01) ==
LOC: D.CT 11:05
DX: C80.1 Malignant (primary) neoplasm, unspecified (principal)

== ENCOUNTER 2018-02-11 10:17 | Outpatient (CLI) | payer MEDICARE ==
[~2018-02-11] VITALS: Ht 182.9 cm; Wt 90.0 kg
[2018-02-11 11:33] VITALS: Ht 182.9 cm; Wt 90.0 kg
== END 2018-02-11 18:25 | disposition home or self-care (01) ==
LOC: D.OPS 10:17
DX: C80.1 Malignant (primary) neoplasm, unspecified (principal); C79.51 Secondary malignant neoplasm of bone; D64.81 Anemia due to antineoplastic chemotherapy; D70.2 Other drug-induced agranulocytosis; D70.1 Agranulocytosis secondary to cancer chemotherapy; Z01.812 Encounter for preprocedural laboratory examination

== ENCOUNTER 2018-06-09 19:06 | Inpatient (IN) | payer MEDICARE ==
[~2018-06-09] VITALS: Ht 182.9 cm; Wt 59.0 kg
--- NOTE | ~2018-06-09 | MORECARE ---
CASE MANAGEMENT DISCHARGE SUMMARY PATIENT: KURTIS CRONIN UNIT: [id number] ADM DATE: 06/09/18 AGE: 67 : 50 SEX: M ROOM/BED: D.2204 AUTHOR: CHLOE,DOC PHYSICIAN: REFERRING PHYSICIAN: JAMES PEREZ MD DATE OF SERVICE: 06/13/18 Discharge Plan Patient Name: KURTIS CRONIN Facility: [facility]:[place] : 1950 Planned Disposition: Home or Self Care Anticipated Discharge Date: Discharge Date: 06/12/2018 Expected LOS: 0 Initial Reviewer: [email or web address] Initial Review Date: 06/09/2018 Generated: 06/13/18 2:33 pm Comments DCP- Discharge Planning Updated by [email or web address]: Angelica Michel on 06/12/18 7:[address] imm served and explained patient will be discharging home denies any needs CM to follow and assist with DC planning as needed DCP- Discharge Planning Updated by [email or web address]: Angelica Michel on 06/11/18 1:[address] Patient Name: KURTIS CRONIN Admission Status: Elective Accout number: [id number] Admission Date: 06-09-2018 : 1950 Admission Diagnosis:WEAKNESS Attending: JAMES PEREZ Current LOS: 2 Anticipated DC Date: Planned Disposition: Home or Self Care Primary Insurance: MEDICARE A & B Discharge Planning Comments: CM met with patient to assess discharge planning needs. Patient stated that he is independent with his care at home and plans to return there. 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 He does not use and DME and did not think he will need it at DC. His home is safe and there is not any step or stairs in his home. CM will continue to follow and assist with dc planning as needed Rotary Shear Worker Helper: Angelica Michel DCPIA - Discharge Planning Initial Assessment Updated by [email or web address]: Angelica Michel on 06/11/18 2:48 pm * Is the patient Alert and Oriented? Yes * How many steps to enter\exit or inside your home? * PCP KAELO * [facility]acy [facility]) * Preadmission Environment Home with Family * ADLs Independent * Equipment None * List name and contact numbers for known caregivers / representatives who currently or will assist patient after discharge: JENN () [phone] * Verbal permission to speak to the caregivers and representatives has been obtained from the patient. N/A * Community resources currently utilized None * Additional services required to return to the preadmission environment? No * Can the patient safely return to the preadmission environment? Yes * Has this patient been hospitalized within the prior 30 days at any hospital? 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
--- NOTE | ~2018-06-09 | MORECARE ---
CASE MANAGEMENT DISCHARGE SUMMARY PATIENT: KURTIS CRONIN UNIT: [id number] ADM DATE: 06/09/18 AGE: 67 : 50 SEX: M ROOM/BED: D.2204 AUTHOR: CHLOE,DOC PHYSICIAN: REFERRING PHYSICIAN: JAMES PEREZ MD DATE OF SERVICE: 06/12/18 Discharge Plan Patient Name: KURTIS CRONIN Facility: [facility]:[place] : 1950 Planned Disposition: Home or Self Care Anticipated Discharge Date: Discharge Date: Expected LOS: Initial Reviewer: [email or web address] Initial Review Date: 06/09/2018 Generated: 06/12/18 9:14 am Comments DCP- Discharge Planning Updated by [email or web address]: Angelica Michel on 06/12/18 7:[address] imm served and explained patient will be discharging home denies any needs CM to follow and assist with DC planning as needed DCP- Discharge Planning Updated by [email or web address]: Angelica Michel on 06/11/18 1:[address] Patient Name: KURTIS CRONIN Admission Status: Elective Accout number: [id number] Admission Date: 06-09-2018 : 1950 Admission Diagnosis:WEAKNESS Attending: JAMES PEREZ Current LOS: 2 Anticipated DC Date: Planned Disposition: Home or Self Care Primary Insurance: MEDICARE A & B Discharge Planning Comments: CM met with patient to assess discharge planning needs. Patient stated that he is independent with his care at home and plans to return there. 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 He does not use and DME and did not think he will need it at DC. His home is safe and there is not any step or stairs in his home. CM will continue to follow and assist with dc planning as needed Painter Mirror: Angelica Michel DCPIA - Discharge Planning Initial Assessment Updated by [email or web address]: Angelica Michel on 06/11/18 2:48 pm * Is the patient Alert and Oriented? Yes * How many steps to enter\exit or inside your home? * PCP KAELO * [facility]) * Preadmission Environment Home with Family * ADLs Independent * Equipment None * List name and contact numbers for known caregivers / representatives who currently or will assist patient after discharge: JENN () [phone] * Verbal permission to speak to the caregivers and representatives has been obtained from the patient. N/A * Community resources currently utilized None * Additional services required to return to the preadmission environment? No * Can the patient safely return to the preadmission environment? Yes * Has this patient been hospitalized within the prior 30 days at any hospital? No Coverage Notice Reviewer: [email or web address] [place] Michel Notice Issued Date-Time: 06/12/2018 8:00 Notice Type: IM Discharge Notice Notice Delivered To: Patient Relationship to Patient: Teacher Of The Hearing Impaired Name: Delivery Method: HAND - Hand Delivered Tess Days: Prior Verbal Notification: Recipient Understood Notice: Yes Recipient Signature: Yes Med Rec Note Co-signed by Attending: Coverage Notice Comment: Last DP export: 06/11/18 1:53 Patient Name: KURTIS CRONIN Page [phone] at 0815 All edits/amendments must be made on the electronic document DICTATION DATE: 06/12/18813 DRAWER IN: TOMASZ 06/12/18813 RPT#: [id number] DC DATE: STATUS: ADM IN [facility] [address] [place] [address] END OF REPORT
--- NOTE | ~2018-06-09 | MORECARE ---
CASE MANAGEMENT DISCHARGE SUMMARY PATIENT: KUTRIS CRONIN UNIT: [id number] ADM DATE: 06/09/18 AGE: 67 : 50 SEX: M ROOM/BED: D.2204 AUTHOR: CHLOEDOC PHYSICIAN: REFERRING PHYSICIAN: JAMES PEREZ MD DATE OF SERVICE: 06/11/18 Discharge Plan Patient Name: KURTIS CRONIN Facility: [facility]:[place] : 1950 Planned Disposition: Home or Self Care Anticipated Discharge Date: Discharge Date: Expected LOS: Initial Reviewer: [email or web address] Initial Review Date: 06/09/2018 Generated: 06/11/18 3:53 pm Comments DCP- Discharge Planning Updated by [email or web address]: Angelica Michel on 06/11/18 1:[address] Patient Name: KURTIS CRONIN Admission Status: Elective Accout number: [id number] Admission Date: 06-09-2018 : 1950 Admission Diagnosis:WEAKNESS Attending: JAMES PEREZ Current LOS: 2 Anticipated DC Date: Planned Disposition: Home or Self Care Primary Insurance: MEDICARE A & B Discharge Planning Comments: CM met with patient to assess discharge planning needs. Patient stated that he is independent with his care at home and plans to return there. 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 He does not use and DME and did not think he will need it at DC. His home is safe and there is not any step or stairs in his home. CM will continue to follow and assist with dc planning as needed Snuff Maker: Angelica Michel DCPIA - Discharge Planning Initial Assessment Updated by [email or web address]: Angelica Michel on 06/11/18 2:48 pm * Is the patient Alert and Oriented? Yes * How many steps to enter\exit or inside your home? * PCP JOSE JUAN * [facility]) * Preadmission Environment Home with Family * ADLs Independent * Equipment None * List name and contact numbers for known caregivers / representatives who currently or will assist patient after discharge: JENN () [phone] * Verbal permission to speak to the caregivers and representatives has been obtained from the patient. N/A * Community resources currently utilized None * Additional services required to return to the preadmission environment? No * Can the patient safely return to the preadmission environment? Yes * Has this patient been hospitalized within the prior 30 days at any hospital? No Patient Name: KURTIS CRONIN Page [phone] at 1453 All edits/amendments must be made on the electronic document DICTATION DATE: 06/11/181452 REFERENCE ASSISTANT: TOMASZ 06/11/181452 RPT#: [id number] DC DATE: STATUS: ADM IN [facility] [address] [place] [address] END OF REPORT
[2018-06-09 22:32] LABS: ALBUMIN 2.2 g/dL (3.4-5.0); ANION GAP 24.6 mmol/L (8-16); BILIRUBIN - TOTAL 1.05 mg/dL (0.2-1.3); CALCIUM 7.2 mg/dL (8.5-10.1); CARBON DIOXIDE 13.4 mmol/L (21.0-32.0); PROTEIN - SERUM 6.3 g/dL (6.4-8.2)
[2018-06-09 22:44] LABS: BASOPHILS 0.2 % (0-2); EOSINOPHILS 0 % (0-7); HEMATOCRIT 27.5 % (42.0-54.0); HEMOGLOBIN 8.8 g/dL (13.5-17.5); IMMATURE GRANULOCYTES 2.1 % (0-5); LYMPHOCYTES 9.4 % (15-50); MCH 30.9 pg (26.0-34.0); MCV 96.5 fL (80.0-100.0); MONOCYTES 8.1 % (2-11); NEUTROPHILS 80.2 % (40-80); RBC 2.85 10x6/uL (4.20-6.10); RDW 22.7 % (11.5-14.5); WBC 9.8 10x3/uL (4.8-10.8)
[2018-06-09 22:51] LABS: PLATELET COUNT 8 10x3/uL (130-400)
[2018-06-10 03:51] VITALS: BP 100/56; BMI 17.6
[2018-06-10 05:00] VITALS: BP 114/79
[2018-06-10 07:08] LABS: BASOPHILS 0.1 % (0-2); EOSINOPHILS 0.1 % (0-7); HEMATOCRIT 24.8 % (42.0-54.0); HEMOGLOBIN 7.9 g/dL (13.5-17.5); IMMATURE GRANULOCYTES 2.5 % (0-5); LYMPHOCYTES 7.5 % (15-50); MCH 30.9 pg (26.0-34.0); MCHC 31.9 g/dL (31.0-37.0); MCV 96.9 fL (80.0-100.0); MEAN PLATELET VOLUME 8.1 fL (7.4-10.4); MONOCYTES 6.6 % (2-11); NEUTROPHILS 83.2 % (40-80); RBC 2.56 10x6/uL (4.20-6.10); RDW 22.9 % (11.5-14.5); WBC 8.3 10x3/uL (4.8-10.8)
[2018-06-10 07:14] LABS: PLATELET COUNT 22 10x3/uL (130-400)
[2018-06-10 07:45] LABS: PLATELET ESTIMATE DECREASED
[2018-06-10 08:21] VITALS: BP 95/57
[2018-06-10 10:26] VITALS: Ht 182.9 cm; Wt 59.0 kg
[2018-06-10] MEDS ORDERED: DECADRON4 MG PO (11:15)
[2018-06-10] MEDS ORDERED: MORPHINE IMMEDI30 M1 PO (11:16)
[2018-06-10] MEDS ORDERED: MORPHINE SULFAT30 M4 PO (11:17)
[2018-06-10] MEDS ORDERED: CARDURA1 MG PO (11:17)
[2018-06-10] MEDS ORDERED: NEURONTIN 300300 MG PO (11:18)
[2018-06-10 12:28] VITALS: BP 108/68
[2018-06-10 16:50] VITALS: BP 97/64
[2018-06-10 20:00] VITALS: BP 95/59
[2018-06-11] VITALS: BP 126/76
[2018-06-11 04:00] VITALS: BP 121/67
[2018-06-11 08:34] VITALS: BP 128/78
[2018-06-11 10:24] LABS: ANION GAP 22.3 mmol/L (8-16); CALCIUM 7.1 mg/dL (8.5-10.1); CARBON DIOXIDE 19.9 mmol/L (21.0-32.0); CREATININE - SERUM 2.3 mg/dL (0.6-1.3); POTASSIUM - SERUM 4.2 mmol/L (3.5-5.1)
[2018-06-11 10:25] LABS: BASOPHILS 0.3 % (0-2); EOSINOPHILS 0 % (0-7); IMMATURE GRANULOCYTES 4.9 % (0-5); LYMPHOCYTES 9.9 % (15-50); MCH 31.3 pg (26.0-34.0); MCHC 32.3 g/dL (31.0-37.0); MCV 96.7 fL (80.0-100.0); MONOCYTES 5.7 % (2-11); NEUTROPHILS 79.2 % (40-80); WBC 7.9 10x3/uL (4.8-10.8)
[2018-06-11 10:30] LABS: HEMATOCRIT 35.6 % (42.0-54.0); HEMOGLOBIN 11.5 g/dL (13.5-17.5); RBC 3.68 10x6/uL (4.20-6.10)
[2018-06-11 10:32] LABS: PLATELET COUNT 17 10x3/uL (130-400)
[2018-06-11 16:45] VITALS: BP 119/69
[2018-06-11 20:00] VITALS: BP 143/81
[2018-06-12] VITALS: BP 132/81
[2018-06-12 04:00] VITALS: BP 151/87
[2018-06-12 05:18] LABS: BASOPHILS 0.2 % (0-2); EOSINOPHILS 0 % (0-7); LYMPHOCYTES 11.3 % (15-50); MCH 31.1 pg (26.0-34.0); MEAN PLATELET VOLUME 9.2 fL (7.4-10.4); NEUTROPHILS 77.5 % (40-80); RDW 23.5 % (11.5-14.5); WBC 8.8 10x3/uL (4.8-10.8)
[2018-06-12 05:37] LABS: HEMATOCRIT 22.8 % (42.0-54.0); HEMOGLOBIN 7.3 g/dL (13.5-17.5); PLATELET COUNT 56 10x3/uL (130-400); RBC 2.35 10x6/uL (4.20-6.10)
[2018-06-12 09:01] VITALS: BP 144/87
== END 2018-06-12 11:56 | disposition home or self-care (01) | DRG 813 ==
LOC: D.MS 19:06 → D.EDHOLD 19:06 → D.MS 19:14
PROVIDERS: Internal Medicine Hematology & Oncology
DX: D69.6 Thrombocytopenia, unspecified (principal); Z68.1 Body mass index [BMI] 19.9 or less, adult; C34.90 Malignant neoplasm of unspecified part of unspecified bronchus or lung; C77.1 Secondary and unspecified malignant neoplasm of intrathoracic lymph nodes; C79.51 Secondary malignant neoplasm of bone; C79.52 Secondary malignant neoplasm of bone marrow; I10 Essential (primary) hypertension; R63.4 Abnormal weight loss; R39.2 Extrarenal uremia; E86.0 Dehydration